=== PATIENT | female | born 1990 | race Caucasian/White ===

== ENCOUNTER 2019-08-05 05:54 | Outpatient (CLI) | payer OTHER, SELFPAY ==
[2019-08-05 05:54] VITALS: BP 132/77; PULSE 90; RESP 18; TEMP 36.7
[2019-08-05 06:22] VITALS: BP 132/77; PULSE 100; BMI 31.4
[2019-08-05 08:31] VITALS: BP 132/77; PULSE 100; RESP 17; TEMP 36.7
[2019-08-05 10:52] LABS: Nitrazine Paper, PH Negative
== END 2019-08-05 08:10 | disposition home or self-care (01) ==
LOC: OPOB 06:14 → OBGYN 07:17 → OPOB 10:32
PROVIDERS: Visit Provider Obstetrics & Gynecology
DX: O26.899 Other specified pregnancy related conditions, unspecified trimester (principal); Z3A.00 Weeks of gestation of pregnancy not specified; N89.8 Other specified noninflammatory disorders of vagina
CPT/HCPCS: 83986; 99211

== ENCOUNTER 2019-08-07 17:40 | Inpatient (IN) | payer OTHER, SELFPAY ==
[2019-08-07] VITALS (21 sets, daily range): BP systolic 0–148; BP diastolic 0–80; PULSE 92–112; RESP 16; TEMP 36.4–36.7; BMI 31.2
[2019-08-07 17:06] LABS: Nitrazine Paper, PH Inconclusive
[2019-08-07 17:19] LABS: Actim Prom Positive
[2019-08-07 18:57] LABS: Basophils % 0.3 %; Eosinophils # 0.1 10^3/uL (0.0-0.8); Eosinophils % 1.2 %; Hematocrit 37.6 % (37.0-47.0); Hemoglobin 12.7 g/dL (11.5-15.3); Lymphocytes # 2.4 10^3/uL (0.8-4.8); Lymphocytes % 22.1 %; Mean Corpuscular HGB Conc 33.8 g/dL (30.0-36.0); Mean Corpuscular Hemoglobin 28.7 pg (28.0-34.0); Mean Corpuscular Volume 85.1 fL (81-99); Mean Platelet Volume 10.5 fL (7.4-10.4); Monocytes # 0.7 10^3/uL (0.2-0.9); Monocytes % 5.9 %; Neutrophils # 7.7 10^3/uL (1.8-7.7); Nucleated Red Blood Cells % 0 %; Platelet Count 262 10^3/cmm (130-400); Red Blood Count 4.42 10^6/uL (4.1-5.3); Red Cell Distribution Width 12.8 % (12.1-15.1)
[2019-08-07] MEDS: dextrose 5%-lactated ringers 1,000 ML 125 ML IV (19:17)
[2019-08-07] MEDS: ampicillin 2,000 MG in sodium chloride 0.9% (plus) 50 ML 100 MG IV (19:17)
--- NOTE | 2019-08-07 19:36 | PC.NURSE ---
Pt continuing to reposition self in bed and sitting straight up and picking up maternal heart rate.
[2019-08-07] MEDS: ampicillin 1,000 MG in sodium chloride 0.9% (plus) 50 ML 100 MG IV (23:09)
[2019-08-08] VITALS (29 sets, daily range): BP systolic 0–174; BP diastolic 0–104; PULSE 91–141; RESP 16–18; TEMP 36.4–36.9
[2019-08-08] MEDS: fentaNYL 50 mcg/mL INJ 2mL IV (00:17)
[2019-08-08] MEDS: oxytocin 30 UNIT/500 ML BAG 600 UNIT IV (02:07)
[2019-08-08] MEDS: lidocaine 2% INJ 20 mL INJECTION ×2 (02:08→07:28)
--- NOTE | 2019-08-08 02:17 | P.PCNOB_ITS ---
Delivery Note: Date of delivery: August 08, 2019 Pre-delivery diagnoses: term . Premature rupture of membranes. Post-delivery diagnoses: Same as above Procedure: vacuum-assisted vaginal delivery Op report anesthesia: Nerve Block (pudendal block) Delivering Physician: Marvel Maravilla M.D. Estimated blood loss (mL): 500 Findings: baby girl, Apgars 8 and 9 Pre-Delivery Course: The patient is a 29yo at 37 weeks weeks EGA who has been receiving care from [facility]. The patient will referred by primary provider because of premature rupture of membranes, She has been experiencing painful uterine contractions for the past 4 hours. The contractions are occurring at 4 minute intervals with approximately [30] second duration. She continues to feel movement between the contractions. She denies vaginal bleeding or rupture of membranes. LMP: [06/02/2008] Estimated date of confinement: [03/09/2009] CC: Onset of labor at term. HPI: Received appropriate care. Daily vitamins since two months prior to conception. labs have all been normal, including negative for HIV. She was found to [positive] for Group B Strep from screening at 36 weeks. She has gained approximately [3] lbs throughout the . She denies a history of HTN during . Glucose tolerance screening for gestational diabetes was negative. Delivery: vacuum-assisted vaginal delivery. The patient was noted to be complete and pushing, so was placed in the dorsal lithotomy position, prepped and draped in the usual sterile fashion for a vaginal delivery. Prolonged decelerations were noted, patient was counseled regarding these event and recommended vacuum extraction. head station was at +3 station. Pt. Noted to have no epidural anesthesia and a pudendal block was applied. Decision was made to apply the Kiwi vacuum @ 37 weeks for the above indications. The mother was informed and asked for her consent for application of the vacuum. A Herr had been used to insure the bladder was emptied. Adequate anesthesia was confirmed. The edges of the cup of the Kiwi vacuum were placed approximately 3cm from the anterior fontanelle, and just at the edge of the posterior fontanelle. The center of the cup was placed over the flexion point. The edges of the cup were swept with a finger to ensure that no maternal tissues were entrapped. After correct placement of the cup was confirmed, vacuum pressure was raised to 500-600 mmHg. Gentle traction along the axis of the pelvic curve down then up, was applied in concert with maternal pushing. 1 # applications. 0# pop-offs. After head delivered, the vacuum pressure released and was taken off the baby's head. Pt. Noted to have epidural anesthesia. At 0140 the patient delivered a viable (gestational age) fetus weighing 2755 g with scores of 8 and 9 at one and five minutes, respectively. The vertex was delivered vacuum assisted over intact perineum. The patient was asked to push and the head delivered in the TIMO position, over an intact perineum. A nuchal cord was checked and 2 nuchal cords noted, and delivered through around head as necessary. The anterior shoulder delivered easily and the posterior shoulder followed. The remainder of the infant was easily delivered and the oropharynx and nasopharynx was again bulb suctioned. The infant was noted to have spontaneous cry and spontaneous movement of all four extremities. The cord was clamped x 2 and cut and noted to have 2 arteries and one vein. The infant was passed to the mother's abdomen where nursing personnel were in attendance. Cord blood sample was then obtained. The placenta delivered intact spontaneously and the uterus was explored. Pitocin 20 units in 1L LR was initiated. Examination of the cervix, vagina and perineal areas were inspected for lacerations and did not reveal any lacerations. A vaginal pack was then placed. Examination of the perineum showed second degree laceration. The second-degree laceration was repaired with 3-0 Vicryl in the normal fashion in a running non locking fashion to reapproximate the laceration in layers. The vaginal pack was then removed. The patient tolerated this procedure well, and recovered in L&D with her to the OB nuñez. All sponge and needle counts were correct. Post-Delivery Status: good and stable A&P Assessment and plan (1) Term delivered: Status: Acute Code(s): O80 - Encounter for full-term uncomplicated delivery (2) Premature rupture of membranes (PROM), delivered: Status: Acute Code(s): O42.90 - Premature rupture of membranes, unspecified as to length of time between rupture and onset of labor, unspecified weeks of gestation Coding Level of Care Code Acute Supervisor Policy Change Clerks for Chg Fwd Diagnoses Term delivered O80 Premature rupture of membranes (PROM), delivered O42.90
[2019-08-08] MEDS: lanolin oint 7 gm 1 APPLIC TOPICAL (02:54)
[2019-08-08] MEDS: benzocaine-menthol 78 gm Canister 1 SPRAY TOPICAL (02:55)
--- NOTE | 2019-08-08 07:28 | PC.NURSE ---
lidocaine 2% requested by Dr. Maravilla after delivery for repair. Order was put in and med was scanned after delivery
[2019-08-08] MEDS: prenatal vitamin Capsule 1 CAP PO (09:25)
[2019-08-08] MEDS: docusate sodium 100 mg Capsule PO ×2 (09:25→21:24)
[2019-08-08 14:58] LABS: Hematocrit 33.6 % (37.0-47.0); Hemoglobin 11.1 g/dL (11.5-15.3); Mean Corpuscular Hemoglobin 28.8 pg (28.0-34.0); Mean Corpuscular Volume 87.3 fL (81-99); Mean Platelet Volume 10.4 fL (7.4-10.4); Platelet Count 236 10^3/cmm (130-400); Red Blood Count 3.85 10^6/uL (4.1-5.3); Red Cell Distribution Width 12.9 % (12.1-15.1); White Blood Count 18.3 10^3/uL (4.0-10.0)
[2019-08-09 03:15] VITALS: BP 113/73; PULSE 103; RESP 18; TEMP 36.5
[2019-08-09 09:55] VITALS: BP 119/72; PULSE 102; RESP 18; TEMP 36.5
[2019-08-09] MEDS: prenatal vitamin Capsule 1 CAP PO (10:01)
[2019-08-09] MEDS: docusate sodium 100 mg Capsule PO ×2 (10:01→17:39)
--- NOTE | 2019-08-09 13:31 | P.PN_ITS ---
Subjective Subjective: Interval history: 29-year-old female status post vacuum-assisted vaginal delivery. Refers she is feeling fine. Medications: Reviewed: Yes Vitals/I&O/Wt Last Vital Signs Temp 97.7 F 08/09/19 09:55 Pulse 102 H 08/09/19 09:55 Resp 18 08/09/19 09:55 BP 119/72 08/09/19 09:55 Weight last 48 hrs Weight 171 lb Physical Exam Narrative: EXAM NARRATIVE: GA; alert and oriented x 3 HEENT: normal Breasts: engorged Nipples - skin intact Lungs; clear to auscultation Heart: regular rhythm, no murmurs. Abd: Appropriately tender. BS+. Uterine fundus below umbilicus. No Fundal Tenderness. Perineum: normal lochia. Extremities: no edema, no cyanosis, no tenderness. Data : 08/08/19 14:06 A&P Assessment and plan (1) Term delivered: 1-year-old female status post vacuum assisted vaginal delivery day 1. She is afebrile hemodynamically stable however, she is tachycardic. CBC within normal limits. Will continue observation. Encourage ambulation. Status: Acute Code(s): O80 - Encounter for full-term uncomplicated delivery (2) Premature rupture of membranes (PROM), delivered: Status: Acute Code(s): O42.90 - Premature rupture of membranes, unspecified as to length of time between rupture and onset of labor, unspecified weeks of gestation Attestations Medical Necessity Statement*: In my professional opinion per admitting diagnosis Coding Level of Care Code Acute Needle Punch Machine Operator Helper for Chg Fwd Diagnoses Term delivered O80 Premature rupture of membranes (PROM), delivered O42.90
[2019-08-09 15:10] VITALS: BP 101/61; PULSE 94; RESP 18; TEMP 36.6
[2019-08-09 21:40] VITALS: BP 105/69; PULSE 99; RESP 16; TEMP 36.8
[2019-08-10 03:39] VITALS: BP 120/72; PULSE 86; RESP 17; TEMP 36.6; O2SAT 97
[2019-08-10 07:58] VITALS: BP 106/63; PULSE 80; RESP 16; TEMP 36.5
[2019-08-10] MEDS: prenatal vitamin Capsule 1 CAP PO (10:00)
[2019-08-10] MEDS: docusate sodium 100 mg Capsule PO (10:01)
--- NOTE | 2019-08-10 12:24 | PM.OBGYDC ---
Discharge Providers CHIEF INSPECTOR Date of Admission: 08/07/19 17:40 Date of Discharge: 08/10/19 Attending Provider at Admission: Marvel Maravilla MD Attending Provider at Discharge: Marvel Maravilla MD Diagnoses at Discharge Discharge Diagnosis (1) Term delivered: Status: Acute Problem details: patient is status post vacuum-assisted vaginal delivery day 2 (2) Premature rupture of membranes (PROM), delivered: Status: Acute Reason for Visit Reason for Visit: Reason For Visit: LABOR Hospital Course Hospital Course: Patient came to labor and delivery with complaining of membrane rupture. immature rupture membranes was confirmed and she was admitted to labor and delivery she progressed to have a vacuum-assisted vaginal delivery. observation significant for resident tachycardia but uneventful. is afebrile hemodynamically stable. Tolerating diet well. Ambulating without difficulty. Information Peripartum Data: Infant Delivery Method: Vaginal Physical Exam Narrative: EXAM NARRATIVE: GA; alert and oriented x 3 HEENT: normal Breasts: engorged Nipples - skin intact Lungs; clear to auscultation Heart: regular rhythm, no murmurs. Abd: Appropriately tender. BS+. Uterine fundus below umbilicus. No Fundal Tenderness. Perineum: normal lochia. Extremities: no edema, no cyanosis, no tenderness. Discharge Data Vitals: Last Vital Signs Temp 97.7 F 08/10/19 07:58 Pulse 80 08/10/19 07:58 Resp 16 08/10/19 07:58 BP 106/63 08/10/19 07:58 Pulse Ox 97 08/10/19 03:39 Discharge Plan Discharge Patient Disposition: Home, Self-Care Condition: Stable Prescriptions: New acetaminophen 325 mg Tablet 650 mg PO Q6H PRN (Reason: Mild pain or temp > 100.4) Qty: 60 RF: 0 docusate sodium 100 mg Capsule 100 mg PO BID Qty: 60 RF: 0 ibuprofen 800 mg Tablet 800 mg PO TID Qty: 60 RF: 0 Continued + DHA 1 tab 1 tab PO DAILY RF: 0 Discharge Orders: Discharge Order (Routine); Ordered 08/10/19 Ordered By: Marvel Maravilla Discharge Diet: Regular Discharge Activity: Increase activity as tolerated Patient Instructions: , Vitamins (By mouth), Breast Care for the Breast Feeding Mother (DC), Vaginal Delivery (DC), OB Discharge Report, OB Food/Drug Interaction Guide, OB Care at Home, OB Home Care, OB Proud Parent Packet, OB Vaginal Deliveries Activity Restrictions/Additional Instructions: pelvic rest for 6 weeks. Return to the emergency room if any fever, increased bleeding or pain. Discharge Attestations CHIEF INSPECTOR Time Spent in Discharge Care*: greater than 30 min Specific Discharge Activities: Specific discharge activities: educating and/or supporting family/caregiver Coding Level of Care Code Acute Video Rental Clerk for Chg Fwd Diagnoses Term delivered O80 Premature rupture of membranes (PROM), delivered O42.90
[2019-08-10 12:55] VITALS: BP 116/71; PULSE 94; RESP 16; TEMP 37; O2SAT 97
[2019-08-10 13:20] VITALS: BP 116/71; PULSE 94; RESP 16; TEMP 37; O2SAT 97
== END 2019-08-10 13:15 | disposition home or self-care (01) | DRG 807 ==
LOC: OBGYN 08-10 12:24 → OPOB 08-10 13:57
PROVIDERS: Admitting Provider Obstetrics & Gynecology; Visit Provider Obstetrics & Gynecology
DX: O42.02 Full-term premature rupture of membranes, onset of labor within 24 hours of rupture (principal); Z37.0 Single live birth; Z3A.37 37 weeks gestation of pregnancy; O99.824 Streptococcus B carrier state complicating childbirth; O76 Abnormality in fetal heart rate and rhythm complicating labor and delivery; O70.1 Second degree perineal laceration during delivery
CPT/HCPCS: 12345; 36415; 59025; 59409; 83986; 84112; 85025; 85027; 96372; 99211; A4216; J0290; J2001; J3010